=== PATIENT | male | born 1955 | race Caucasian/White ===

== ENCOUNTER 2021-10-02 23:20 | Inpatient (IN) | payer MEDICARE, OTHER ==
[~2021-10-02] VITALS: Ht 167.6 cm; Wt 85.1 kg
[2021-10-03 01:18] LABS: Nucleated Red Blood Cells % 0.1 %
[2021-10-03 01:21] LABS: Basophils # (auto) 0 10 ^3/uL (0-0.2); Basophils % (auto) 0.1 % (0.0-2.0); Eosinophils # (auto) 0 10 ^3/uL (0-0.8); Eosinophils % (auto) 0.1 % (0.0-7.0); Hematocrit 48.5 % (41.0-53.0); Hemoglobin 16.1 g/dL (13.5-17.5); Lymphocytes # (auto) 0.8 10 ^3/uL (0.4-5.4); Lymphocytes % (auto) 5.7 % (10.0-50.0); Mean Corpuscular Hemoglobin 29.6 pg (28.0-32.0); Mean Corpuscular Hgb Conc. 33.2 g/dL (32.0-36.0); Mean Corpuscular Volume 89.2 fL (80.0-100.0); Monocytes % (auto) 6.5 % (0.0-12.0); Neutrophils # (auto) 12.9 10 ^3/uL (1.6-8.6); Neutrophils % (auto) 87.6 % (37.0-80.0); Red Blood Cells 5.44 10^6/uL (4.5-5.90); White Blood Cell 14.8 10^3/uL (4.4-10.8)
[2021-10-03 01:23] LABS: Albumin 4.1 g/dL (3.4-5.0); Calcium 8.7 mg/dL (8.5-10.1); Magnesium 2.1 mg/dL (1.6-2.6); Potassium 3.9 mmol/L (3.5-5.1)
[2021-10-03 01:25] LABS: Lactic Acid w/Reflex 2.9 mmol/L (0.4-2.0)
[2021-10-03 01:29] LABS: BUN/Creatinine Ratio 14.7; Bilirubin, Total 1.6 mg/dL (0.2-1.0)
[2021-10-03] MEDS ORDERED: MORPHINE SULFATE 4 MG/ML SYR/VIAL IV ONE (02:00)
[2021-10-03] MEDS ORDERED: ONDANSETRON HCL 4 MG/2 ML VIAL IV ONE (02:00)
[2021-10-03] MEDS ORDERED: SODIUM CHLORIDE 0.9% 1,000 ML IV ONE (02:30)
[2021-10-03] MEDS ORDERED: PIPERACILLIN-TAZO 4.5GM 100 ML IV ONE (02:30)
[2021-10-03 02:34] LABS: INR 1.05 (0.9-1.15); Partial Thromboplastin Time 26.1 sec (23.6-33.0)
[2021-10-03] MEDS ORDERED: HYDROcodone-ACET 5/325MG TAB PO PRN (04:15)
[2021-10-03] MEDS ORDERED: NITROGLYCERIN 0.4 MG SL TAB SL PRN (04:30)
[2021-10-03] MEDS ORDERED: MORPHINE SULFATE INJECTION 2 MG/ML SYRG IV PRN (04:30)
[2021-10-03] MEDS: MORPHINE SULFATE 4 MG/ML SYR/VIAL IV PRN ×2 (05:56→10:18)
[2021-10-03] MEDS: metroNIDAZOLE 500MG/100ML 100 ML IV SCH ×3 (05:56→21:26)
[2021-10-03] MEDS: SODIUM CHLORIDE 0.9% 1,000 ML IV SCH ×2 (05:56→20:55)
[2021-10-03] MEDS: ONDANSETRON HCL 4 MG/2 ML VIAL IV PRN (05:58)
[2021-10-03 06:31] LABS: Urine Bacteria NONE SEEN /hpf (None Seen); Urine Blood Negative /uL (Negative); Urine Mucus FEW (None Seen); Urine Specific Gravity 1.026 (1.001-1.035); Urine WBC 2 /hpf (0 - 3)
[2021-10-03 07:28] LABS: Basophils # (auto) 0 10 ^3/uL (0-0.2); Basophils % (auto) 0.2 % (0.0-2.0); Eosinophils # (auto) 0.1 10 ^3/uL (0-0.8); Eosinophils % (auto) 0.4 % (0.0-7.0); Hematocrit 49.1 % (41.0-53.0); Hemoglobin 16.2 g/dL (13.5-17.5); Lymphocytes # (auto) 0.4 10 ^3/uL (0.4-5.4); Mean Corpuscular Hemoglobin 29.3 pg (28.0-32.0); Mean Corpuscular Hgb Conc. 32.9 g/dL (32.0-36.0); Mean Corpuscular Volume 89.1 fL (80.0-100.0); Monocytes % (auto) 5.2 % (0.0-12.0); Neutrophils # (auto) 18.3 10 ^3/uL (1.6-8.6); Neutrophils % (auto) 92.2 % (37.0-80.0); Nucleated Red Blood Cells % 0.1 %; Red Blood Cells 5.51 10^6/uL (4.5-5.90); Red Cell Distribution Width 13.6 % (11.8-14.3); White Blood Cell 19.8 10^3/uL (4.4-10.8)
[2021-10-03 07:54] LABS: Albumin 3.8 g/dL (3.4-5.0); Calcium 8.5 mg/dL (8.5-10.1); Potassium 4.9 mmol/L (3.5-5.1)
[2021-10-03 07:58] LABS: BUN/Creatinine Ratio 14.1; Bilirubin, Total 2.5 mg/dL (0.2-1.0); Total Protein 7.9 g/dL (6.4-8.2)
[2021-10-03] MEDS: cefTRIAXone 1GM/50ML D5W 50 ML IV SCH (10:16)
[2021-10-03 10:40] VITALS: BP 128/81
[2021-10-03 13:07] VITALS: BP 128/81
[2021-10-03 13:10] VITALS: BP 126/77
[2021-10-03 13:22] VITALS: BP 128/81
[2021-10-03] MEDS ORDERED: SIMV-13 PO (13:36)
[2021-10-03] MEDS ORDERED: LISI20TA28 PO (13:37)
[2021-10-03] MEDS ORDERED: BUPIVACAINE 0.25% INJ 50ML VIAL ONE (15:25)
[2021-10-03] MEDS ORDERED: HYDROmorphone HCL 2 MG/ML VL ONE (15:29)
[2021-10-03] MEDS ORDERED: MIDAZOLAM HCL 2MG/2ML 2ml VIAL (1mg/ml) ONE (15:29)
[2021-10-03] MEDS ORDERED: PROPOFOL 10 MG/ML 20 ML IV ONE (16:12)
[2021-10-03] MEDS ORDERED: DexAMETHasone SOD PHOS 10MG/1ML VIAL INJ ONE (16:13)
[2021-10-03] MEDS ORDERED: METOCLOPRAMIDE HCL 5MG/ml INJ 2ml VIAL ONE (16:13)
[2021-10-03] MEDS ORDERED: SODIUM CHLORIDE LOCK 10 ML ONE (16:13)
[2021-10-03] MEDS ORDERED: PHENYLEPHRINE HCL 10 MG/ML VL ONE (16:13)
[2021-10-03] MEDS ORDERED: ONDANSETRON HCL 4 MG/2 ML VIAL ONE (16:13)
[2021-10-03] MEDS ORDERED: ePHEDrine SULFATE 50 MG/ML AMP ONE (16:13)
[2021-10-03] MEDS ORDERED: KETOROLAC TROMETH 30 MG/ML 1ML VIAL ONE (16:32)
[2021-10-03] MEDS ORDERED: ceFAZolin 1GM VL ONE (16:37)
[2021-10-03] MEDS ORDERED: fentaNYL CITRATE 100 MCG/2 ML VL IV PRN (17:15)
[2021-10-03] MEDS ORDERED: HYDROmorphone HCL 2 MG/ML VL IV PRN ×2 (17:15)
[2021-10-03] MEDS ORDERED: ONDANSETRON HCL 4 MG/2 ML VIAL IV PRN (17:15)
[2021-10-03 21:00] VITALS: BP 107/56
[2021-10-03 22:00] VITALS: BP 98/55
[2021-10-04 05:15] VITALS: BP 98/58
[2021-10-04] MEDS: metroNIDAZOLE 500MG/100ML 100 ML IV SCH ×3 (05:30→21:36)
[2021-10-04 06:15] LABS: Basophils # (auto) 0 10 ^3/uL (0-0.2); Eosinophils # (auto) 0 10 ^3/uL (0-0.8); Hematocrit 39.5 % (41.0-53.0); Hemoglobin 13.3 g/dL (13.5-17.5); Lymphocytes # (auto) 0.4 10 ^3/uL (0.4-5.4); Lymphocytes % (auto) 2.5 % (10.0-50.0); Mean Corpuscular Hemoglobin 29.9 pg (28.0-32.0); Mean Corpuscular Hgb Conc. 33.7 g/dL (32.0-36.0); Mean Corpuscular Volume 88.7 fL (80.0-100.0); Monocytes # (auto) 0.8 10 ^3/uL (0-1.3); Monocytes % (auto) 4.8 % (0.0-12.0); Neutrophils # (auto) 16.2 10 ^3/uL (1.6-8.6); Neutrophils % (auto) 92.7 % (37.0-80.0); Nucleated Red Blood Cells % 0.1 %; Red Blood Cells 4.46 10^6/uL (4.5-5.90); Red Cell Distribution Width 13.9 % (11.8-14.3); White Blood Cell 17.5 10^3/uL (4.4-10.8)
[2021-10-04 06:18] LABS: Albumin 2.7 g/dL (3.4-5.0); BUN/Creatinine Ratio 17.8; Potassium 4.4 mmol/L (3.5-5.1)
[2021-10-04 06:21] LABS: Bilirubin, Total 1.4 mg/dL (0.2-1.0); Total Protein 5.4 g/dL (6.4-8.2)
[2021-10-04 07:30] VITALS: BP 101/53
[2021-10-04 09:00] VITALS: BP 101/53
[2021-10-04] MEDS: cefTRIAXone 1GM/50ML D5W 50 ML IV SCH (10:00)
[2021-10-04] MEDS: ACETAMINOPHEN 325 MG TAB PO PRN ×2 (10:01→19:04)
[2021-10-04 12:58] VITALS: BP 98/54
[2021-10-04] MEDS: SODIUM CHLORIDE 0.9% 1,000 ML IV SCH (15:07)
[2021-10-04 17:00] VITALS: BP 107/55
[2021-10-04] MEDS: ONDANSETRON HCL 4 MG/2 ML VIAL IV PRN (20:13)
[2021-10-04 22:00] VITALS: BP 138/81
[2021-10-05 05:00] VITALS: BP 132/70
[2021-10-05 05:53] LABS: Basophils # (auto) 0 10 ^3/uL (0-0.2); Basophils % (auto) 0.2 % (0.0-2.0); Eosinophils # (auto) 0.1 10 ^3/uL (0-0.8); Eosinophils % (auto) 0.4 % (0.0-7.0); Hematocrit 41.8 % (41.0-53.0); Hemoglobin 14.2 g/dL (13.5-17.5); Lymphocytes % (auto) 8.1 % (10.0-50.0); Mean Corpuscular Hemoglobin 30.1 pg (28.0-32.0); Mean Corpuscular Hgb Conc. 33.9 g/dL (32.0-36.0); Mean Corpuscular Volume 88.8 fL (80.0-100.0); Monocytes # (auto) 0.9 10 ^3/uL (0-1.3); Monocytes % (auto) 6.8 % (0.0-12.0); Neutrophils % (auto) 84.5 % (37.0-80.0); Red Cell Distribution Width 13.7 % (11.8-14.3)
[2021-10-05] MEDS: SODIUM CHLORIDE 0.9% 1,000 ML IV SCH ×2 (05:57→12:56)
[2021-10-05] MEDS: metroNIDAZOLE 500MG/100ML 100 ML IV SCH ×3 (05:58→22:22)
[2021-10-05 06:10] LABS: Albumin 2.8 g/dL (3.4-5.0); BUN/Creatinine Ratio 16.8; Calcium 8.2 mg/dL (8.5-10.1); Potassium 4.4 mmol/L (3.5-5.1)
[2021-10-05 06:12] LABS: Bilirubin, Total 1.3 mg/dL (0.2-1.0)
[2021-10-05] MEDS: ACETAMINOPHEN 325 MG TAB PO PRN (08:31)
[2021-10-05] MEDS: cefTRIAXone 1GM/50ML D5W 50 ML IV SCH (08:31)
[2021-10-05 09:00] VITALS: BP 121/64
[2021-10-05 13:29] VITALS: BP 136/70
[2021-10-05] MEDS ORDERED: HYDROmorphone HCL 2 MG/ML VL IV PRN (16:15)
[2021-10-05] MEDS: HYDROmorphone HCL 2 MG/ML VL IV PRN ×2 (16:55→22:23)
[2021-10-05 17:00] VITALS: BP 135/85
[2021-10-05 22:00] VITALS: BP 119/65
[2021-10-06] MEDS: HYDROmorphone HCL 2 MG/ML VL IV PRN ×2 (03:59→09:54)
[2021-10-06 05:00] VITALS: BP 141/82
[2021-10-06] MEDS: metroNIDAZOLE 500MG/100ML 100 ML IV SCH ×3 (05:30→21:17)
[2021-10-06 08:10] VITALS: BP 140/83
[2021-10-06] MEDS: cefTRIAXone 1GM/50ML D5W 50 ML IV SCH (08:11)
[2021-10-06 09:00] VITALS: BP 140/83
[2021-10-06] MEDS: SODIUM CHLORIDE 0.9% 1,000 ML IV SCH (10:00)
[2021-10-06 13:00] VITALS: BP 145/86
[2021-10-06] MEDS: METOCLOPRAMIDE HCL 5MG/ml INJ 2ml VIAL IV SCH ×2 (14:07→21:17)
[2021-10-06 17:00] VITALS: BP 143/80
[2021-10-06 20:26] VITALS: BP 129/77
[2021-10-07 05:04] VITALS: BP 129/77
[2021-10-07] MEDS: metroNIDAZOLE 500MG/100ML 100 ML IV SCH ×3 (05:47→21:14)
[2021-10-07] MEDS: METOCLOPRAMIDE HCL 5MG/ml INJ 2ml VIAL IV SCH ×3 (05:48→21:14)
[2021-10-07 08:27] VITALS: BP 130/77
[2021-10-07] MEDS: SODIUM CHLORIDE 0.9% 1,000 ML IV SCH (08:27)
[2021-10-07] MEDS: cefTRIAXone 1GM/50ML D5W 50 ML IV SCH (08:27)
[2021-10-07 09:37] VITALS: BP 130/77
[2021-10-07 14:46] VITALS: BP 142/73
[2021-10-07 16:33] VITALS: BP 138/79
[2021-10-07 22:00] VITALS: BP 129/70
[2021-10-08] MEDS: SODIUM CHLORIDE 0.9% 1,000 ML IV SCH (01:22)
[2021-10-08] MEDS: METOCLOPRAMIDE HCL 5MG/ml INJ 2ml VIAL IV SCH (05:16)
[2021-10-08] MEDS: metroNIDAZOLE 500MG/100ML 100 ML IV SCH (05:17)
[2021-10-08 05:30] VITALS: BP 140/78
[2021-10-08 08:30] VITALS: BP 147/87
[2021-10-08] MEDS: cefTRIAXone 1GM/50ML D5W 50 ML IV SCH (08:38)
[2021-10-08] MEDS ORDERED: HYDR-4902 PO (09:49)
[2021-10-08] MEDS ORDERED: LEVO500T31 PO (09:49)
[2021-10-08] MEDS ORDERED: METR500T PO (09:49)
[2021-10-08 10:29] VITALS: BP 147/87
[2021-10-08 11:07] VITALS: BP 147/87
[2021-10-08 13:00] VITALS: BP 142/81
== END 2021-10-08 15:50 | disposition home or self-care (01) | DRG 853 ==
LOC: EDBD 23:20 → ER 23:20 → OVERFLOW 10-03 04:20 → CENTRAL 10-03 08:41
PROVIDERS: ADMIT Nurse Practitioner Family; ATTEND Family Medicine
PROC: 0DNW0ZZ Release Peritoneum, Open Approach (ICD-10-PCS; 2021-10-03)
PROC: 0DTJ0ZZ Resection of Appendix, Open Approach (ICD-10-PCS; 2021-10-03)
PROC: 0D9J00Z Drainage of Appendix with Drainage Device, Open Approach (ICD-10-PCS; principal; 2021-10-03 15:29)
DX: A41.9 Sepsis, unspecified organism (principal); K35.33 Acute appendicitis with perforation, localized peritonitis, and gangrene, with abscess; I10 Essential (primary) hypertension; K66.0 Peritoneal adhesions (postprocedural) (postinfection); K44.9 Diaphragmatic hernia without obstruction or gangrene; B96.20 Unspecified Escherichia coli [E. coli] as the cause of diseases classified elsewhere; E78.00 Pure hypercholesterolemia, unspecified; E86.0 Dehydration; Z20.822 Contact with and (suspected) exposure to COVID-19; Z80.3 Family history of malignant neoplasm of breast; Z85.46 Personal history of malignant neoplasm of prostate; E78.5 Hyperlipidemia, unspecified; Z98.52 Vasectomy status
CPT/HCPCS: 36415; 71045; 74176; 80053; 81001; 83036; 83605; 83690; 83735; 84484; 85025; 85610; 85730; 86850; 86900; 86901; 87040; 87070; 87075; 87076; 87077; 87186; 87205; 87426; 93005; 96365; 96375; G0378; J0690; J0696; J1100; J1885; J2250; J2405; J2543; J2704; J3490